=== PATIENT | female | born 2000 | race African-American/Black ===

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

== ENCOUNTER 2020-12-22 13:06 | Emergency (ER) | payer BC ==
--- NOTE | 2020-12-22 13:46 | EDM.PDOC ---
ED HPI GENERAL MEDICAL PROBLEM - General Chief Complaint: Genitourinary Problem Stated Complaint: UTI Time Seen by Provider: 12/22/20 13:20 Lower Suprapubic Pain Score (Numeric/FACES): 10 - Related Data Allergies Allergy/AdvReac Type Severity Reaction Status Date / Time No Known Allergies Allergy Verified 12/02/18 00:40 Home Meds: Home Meds . 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 Social & Family History - Family History Family Medical History: No Pertinent Family History - Tobacco Use Tobacco Use Status *Q: Current Every Day Tobacco User Years of Tobacco use: 2 Packs/Tins Daily: 1 - Caffeine Use Caffeine Use: Reports: Soda - Alcohol Use Days Per Week of Alcohol Use: 3 Number of Drinks Per Day: 2 Total Drinks Per Week: 6 - Recreational Drug Use Recreational Drug Use: Yes Drug Use in Last 12 Months: Yes Recreational Drug Type: Reports: Marijuana/Hashish Recreational Drug Use Frequency: Daily Course - Vital Signs Last Recorded V/S: Last Vital Signs Temp 36.0 C L 12/22/20 13:21 Pulse 96 12/22/20 13:21 Resp 18 12/22/20 13:21 BP 122/65 12/22/20 13:21 Pulse Ox 98 12/22/20 13:21 - Orders/Labs/Meds Orders: Active Orders 24 hr Category Date Time Status HCG QUALITATIVE,URINE [URCHEM] Stat Lab 12/22/20 13:20 Ordered UA RFX ALEXANDRA AND CULT IF INDIC [URIN] Stat Lab 12/22/20 13:20 Ordered Departure - Discharge Information Referrals: PCP,None [Primary Care Provider] - Sepsis Event Note (ED) - Evaluation Sepsis Screening Result: No Definite Risk - Focused Exam Vital Signs: Vital Signs Temp Pulse Resp BP Pulse Ox 12/22/20 13:21 36.0 C L 96 18 122/65 98
--- NOTE | 2020-12-22 14:49 | EDM.PDOC ---
ED HPI GENERAL MEDICAL PROBLEM - General Chief Complaint: Genitourinary Problem Stated Complaint: UTI Time Seen by Provider: 12/22/20 13:20 Source of Information: Reports: Patient History Limitations: Reports: No Limitations - History of Present Illness INITIAL COMMENTS - FREE TEXT/NARRATIVE: HISTORY AND PHYSICAL: History of present illness: Patient is a 20-year-old female who presents to the ED today with concern of burning with urination and urinary frequency x2 days. Patient denies any associated flank pain or back pain or any other symptoms or concerns. Patient states that she has not currently sexually active so does not believe to be . Patient denies any other associated symptoms. Patient states that she has been taking Azo [id number] to help with her symptoms or her urine is orange due to that. Patient denies fever, chills, chest pain, shortness of breath, or cough. Denies headache, neck stiff ness, change in vision, syncope, or near syncope. Denies nausea, vomiting, abdominal pain, diarrhea, constipation. Has not noted any blood in urine or stool. Patient has been eating and drinking appropriately. Review of systems: As per history of present illness and below otherwise all systems reviewed and negative. Past medical history: As per history of present illness and as reviewed below otherwise noncontributory. Surgical history: As per history of present illness and as reviewed below otherwise noncontributory. Social history: See social history for further information Family history: As per history of present illness and as reviewed below otherwise noncontributory. Physical exam: General: Patient is alert, oriented, and in no acute distress. Patient sitting comfortably on exam table. Vitals stable and reviewed by me. HEENT: Atraumatic, normocephalic, pupils equal and reactive bilaterally, negative for conjunctival pallor or scleral icterus, mucous membranes moist, TMs normal bilaterally, throat clear, neck supple, nontender, trachea midline. No drooling or trismus noted. No meningeal signs. No hot potato voice noted. Lungs: Clear to auscultation, breath sounds equal bilaterally, chest nontender. Heart: S1S2, regular rate and rhythm without overt murmur Abdomen: Soft, nondistended, nontender. Negative for masses or hepatosplenomegaly. Negative for costovertebral tenderness. Pelvis: Stable nontender. Genitourinary: Deferred. Rectal: Deferred. Skin: Intact, warm, dry. No lesions or rashes noted. Extremities: Atraumatic, negative for cords or calf pain. Neurovascular unremarkable. Neuro: Awake, alert, oriented. Cranial nerves II through XII unremarkable. Cerebellum unremarkable. Motor and sensory unremarkable throughout. Exam nonfocal. Notes: Signs and symptoms that were prompt return to the ED thoroughly discussed with patient. Discussed importance for follow-up with a primary care provider. Voices understanding and is agreeable to plan of care. Denies any further questions or concerns at this time. Diagnostics: Urine, urine culture, urine hCG, bedside glucose Therapeutics: None Prescription: Keflex Impression: Urinary tract infection Plan: 1. Take medication as prescribed. You can continue to use [id number] Azo as directed for pain and discomfort. Only take Azo for an additional 2 days before stopping to reassess your symptoms for improving versus worsening infection as discussed. 2. Urine culture results are pending as discussed. 3. Follow-up with your primary care provider as discussed. Return to the ED as needed and as discussed. 4. You can also alternate ibuprofen and Tylenol as directed for pain and discomfort. Definitive disposition and diagnosis as appropriate pending reevaluation and review of above. 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 Social & Family History - Family History Family Medical History: No Pertinent Family History - Tobacco Use Tobacco Use Status *Q: Current Every Day Tobacco User Years of Tobacco use: 2 Packs/Tins Daily: 1 - Caffeine Use Caffeine Use: Reports: Soda - Alcohol Use Days Per Week of Alcohol Use: 3 Number of Drinks Per Day: 2 Total Drinks Per Week: 6 - Recreational Drug Use Recreational Drug Use: Yes Drug Use in Last 12 Months: Yes Recreational Drug Type: Reports: Marijuana/Hashish Recreational Drug Use Frequency: Daily ED ROS GENERAL - Review of Systems Review Of Systems: Comprehensive ROS is negative, except as noted in HPI. ED EXAM, GENERAL - Physical Exam Exam: See Below (see dictation) Course - Vital Signs Last Recorded V/S: Last Vital Signs Temp 96.8 F L 12/22/20 13:21 Pulse 96 12/22/20 13:21 Resp 18 12/22/20 13:21 BP 122/65 12/22/20 13:21 Pulse Ox 98 12/22/20 13:21 - Orders/Labs/Meds Orders: Active Orders 24 hr Category Date Time Status Glucose [Blood Glucose Check, Bedside] [RC] ONETIME Care 12/22/20 14:40 Ordered CULTURE URINE [MREF] Stat Lab 12/22/20 13:25 Received Labs: Laboratory Tests 12/22/20 12/22/20 Range/Units 13:25 13:25 Urine Color ORANGE Urine Appearance SLT CLOUDY Urine pH 6.5 (5.0-8.0) Ur Specific [place] 1.025 (1.001-1.035) Urine Protein >=300 H (NEGATIVE) mg/dL Urine Glucose (UA) 500 H (NEGATIVE) mg/dL Urine Ketones 15 H (NEGATIVE) mg/dL Urine Occult Blood LARGE H (NEGATIVE) Urine Nitrite POSITIVE H (NEGATIVE) Urine Bilirubin NEGATIVE (NEGATIVE) Urine Urobilinogen >=8.0 H (<2.0) EU/dL Ur Leukocyte Esterase MODERATE H (NEGATIVE) Urine RBC >100 H (0-2/HPF) Urine WBC 14-18 (0-5/HPF) Ur Epithelial Cells FEW (NONE-FEW) Urine Bacteria 1+ H (NEGATIVE) Urine Mucus LIGHT (NONE-MOD) Urine HCG, Qual NEGATIVE (NEGATIVE) Departure - Departure Time of Disposition: 14:46 Disposition: Home, Self-Care 01 Clinical Impression: Urinary tract infection Qualifiers: Urinary tract infection type: acute cystitis Hematuria presence: with hematuria Qualified Code(s): N30.01 - Acute cystitis with hematuria - Discharge Information Prescriptions: cephALEXin [Keflex] 500 mg PO Q8H 7 Days #21 cap Referrals: PCP,None [Primary Care Provider] - Forms: ED Department Discharge Additional Instructions: The following information is given to patients seen in the emergency department who are being discharged to home. This information is to outline your options for follow-up care. We provide all patients seen in our emergency department with a follow-up referral. The need for follow-up, as well as the timing and circumstances, are variable depending upon the specifics of your emergency department visit. If you don't have a primary care physician on staff, we will provide you with a referral. We always advise you to contact your personal physician following an emergency department visit to inform them of the circumstance of the visit and for follow-up with them and/or the need for any referrals to a consulting specialist. The emergency department will also refer you to a specialist when appropriate. This referral assures that you have the opportunity for follow-up care with a specialist. All of these measure are taken in an effort to provide you with optimal care, which includes your follow-up. Under all circumstances we always encourage you to contact your private physician who remains a resource for coordinating your care. When calling for follow-up care, please make the office aware that this follow-up is from your recent emergency room visit. If for any reason you are refused follow-up, please contact the [facility] Emergency Department at and asked to speak to the emergency department charge nurse. [facility] [address] [place] [id number] [place] [id number] 1. Take medication as prescribed. You can continue to use [id number] Azo as directed for pain and discomfort. Only take Azo for an additional 2 days before stopping to reassess your symptoms for improving versus worsening infection as discussed. 2. Urine culture results are pending as discussed. 3. Follow-up with your primary care provider as discussed. Return to the ED as needed and as discussed. 4. You can also alternate ibuprofen and Tylenol as directed for pain and discomfort. Sepsis Event Note (ED) - Evaluation Sepsis Screening Result: No Definite Risk - Focused Exam Vital Signs: Vital Signs Temp Pulse Resp BP Pulse Ox 12/22/20 13:21 96.8 F L 96 18 122/65 98 - My Orders Last 24 Hours: My Active Orders 12/22/20 13:25 CULTURE URINE [MREF] Stat 12/22/20 14:40 Glucose [Blood Glucose Check, Bedside] [RC] ONETIME - Assessment/Plan Last 24 Hours: My Active Orders 12/22/20 13:25 C[facility] URINE [facility] Stat 12/22/20 14:40 Glucose [Blood Glucose Check, Bedside] [RC] ONETIME
== END 2020-12-22 15:06 | disposition home or self-care (01) ==
LOC: MW.ED 13:06
DX: N30.01 Acute cystitis with hematuria (principal); Z72.0 Tobacco use
CPT/HCPCS: 81001; 81025; 82947; 87086; 99283